=== PATIENT | male | born 1995 | race Caucasian/White ===

== ENCOUNTER 2024-09-22 09:00 | Day surgery (SDC) | payer OTHER ==
[2024-09-21 08:24] VITALS: BP 136/83
[~2024-09-22] VITALS: Ht 182.9 cm; Wt 111.0 kg
[~2024-09-22 09:00] MED LIST: CEFAZOLIN SODIUM 2 GM/20 ML SYR IV SCH; HEParin SOD (PORCINE) 5,000 UNIT/ML SDV SUB-Q SCH; IBLOOD GLUCOSE TEST STRIP 1 EA TEST VI PRN; LACTATED RINGER'S 1,000 ML IV SCH; LIDOCAINE HCL 1% 5 ML SDV INJ ONE; LIDOCAINE HCL 2% 5 ML SDV ONE; MIDAZOLAM HCL 2 MG/2 ML VIAL ONE; fentaNYL citrate 100 MCG/2 ML VIAL ONE; propofoL 200 MG/20 ML VIAL ONE
[2024-09-22 09:18] VITALS: BP 133/80
[2024-09-22] MEDS ORDERED: ondansetron HCL 4 MG/2 ML VIAL ONE (11:25)
[2024-09-22] MEDS ORDERED: DEXAMETHASONE SOD PHOS 4 MG/ML VIAL ONE (11:25)
[2024-09-22] MEDS ORDERED: KETOROLAC TROMETHAMINE 30 MG/ML VIAL ONE (11:25)
[2024-09-22] MEDS ORDERED: ACETAMINOPHEN500 MG PO (11:42)
[2024-09-22] MEDS ORDERED: OXYCODON-ACETA1 EAC2 PO (11:42)
[2024-09-22] MEDS ORDERED: IBUPROFEN600 MG PO (11:42)
[2024-09-22] MEDS ORDERED: IBUPROFEN 600 MG TAB PO PRN (11:45)
[2024-09-22] MEDS ORDERED: OXYCODONE/APAP 7.5/325 TAB PO PRN (11:45)
[2024-09-22] MEDS ORDERED: NALOXONE HCL 0.4 MG SYR IV PRN (11:45)
[2024-09-22] MEDS ORDERED: LACTATED RINGER'S 1,000 ML IV SCH (11:45)
[2024-09-22] MEDS ORDERED: ACETAMINOPHEN 500 MG TAB PO PRN (11:45)
[2024-09-22 12:10] VITALS: BP 134/88
--- NOTE | 2024-09-22 12:16 | NUR ---
09/22/24 1216 Mami Snyder 1126 PT ARRIVED IN PACU NON RESPONSIVE TO NOXIOUS STIMULI. CHIN LIFT HELD BY RN. 1140 PT REACTIVE. CHIN LIFT NOT REQUIRED AT THIS TIME. 1150 SITTING UP IN BED TALKING TO STAFF. NO C/O'S. 1158 TO DS. REPORT GIVEN TO RN. PT DRINKING GRAPE JUICE.
--- NOTE | 2024-09-22 12:19 | NUR ---
1215: PATIENT BACK IN DAY SURGERY ROOM FROM PACU. RATES PAIN 1/10 AT SURGICAL SITE. RIGHT INNER THIGH SURGICAL DRESSING CDI. VS CHECKED. IV SITE WNL. TOLERATING JUICE. GIVEN CRACKERS TO EAT. AT BEDSIDE. CALL LIGHT WITHIN REACH.
--- NOTE | 2024-09-22 12:41 | OR ---
[facility] [address], [place] [address] Signed DATE OF OPERATION: 09/22/2024 SURGEON: Malaika Ng MD PREOPERATIVE DIAGNOSIS: Right medial lower thigh soft tissue mass. 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 PROCEDURE: Excision of soft tissue mass, right medial thigh including skin, subcutaneous tissue and mass itself with a layered closure. ANESTHESIA: General LMA; Melinda Trotter CRNA and local 10 mL of 0.25% Marcaine with epinephrine. INDICATION: This 29-year-old white man is a patient of RIVERA Moore and was referred with a symptomatic right medial distal thigh soft tissue mass. 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 This caused immediate pain of course and development of soft tissue mass in the area he thought. It has become more firm and well circumscribed and is uncomfortable for him from time to time. There has been no drainage. He had no infection and there was no associated fracture of his leg that he was aware of. He has had no regional adenopathy on examination. An ultrasound was performed under the direction of Madeline Thapa on May 27 showing a 2.1 cm ovoid density shadowing with calcification. Clinically, it is likely to represent fat necrosis with a well-circumscribed granulomatous cocoon. I have recommended excision as it is increasingly symptomatic for him. The risk of bleeding, infection, and other unforeseen complications was reviewed with him. He understands and wished to proceed. FINDINGS: Indeed the mass was rock-hard and most likely represents a focal area of fat necrosis with a mass measuring approximately 3 cm. Wide resection was undertaken including subcutaneous fat and overlying skin. Cosmetic result was good. DESCRIPTION OF PROCEDURE: The patient was brought to the operating room, given a general LMA type anesthetic. Electronically Signed By: MALAIKA NG MD 09/22/24 1241 PATIENT NAME: DARLIN SHAH OPERATIVE REPORT DATE OF : [birth year] REPORT #: [id number] PHYSICIAN: MALAIKA NG MD PCP: TYRA GAXIOLA DO REPORT IS CONFIDENTIAL AND NOT TO BE RELEASED WITHOUT AUTHORIZATION [facility] [address], [place] [address] Signed Preoperative antibiotic Ancef was given. Sequential compression device stockings were used. The leg was carefully padded and placed in an externally rotated (frog-leg) position on the right side. The area was prepared with a chlorhexidine solution and draped sterilely. The line of skin tension was examined and the area of excision marked. Excision was going to include the overlying skin, so as to provide a negative margin depending on its underlying etiology. Wide resection was undertaken in an elliptical configuration excising the lesion in question with associated normal-appearing subcutaneous tissue. Hemostasis was assured with electrocautery. A 10 mL of 0.25% Marcaine with epinephrine was injected locally. The wound was closed in layers of interrupted layers of 2-0 Vicryl and a running subcuticular 3-0 Vicryl for the skin. Steri-Strips were applied as was an Acticoat dressing. He tolerated the procedure well. Blood loss was minimal. Malaika Ng MD JM/MODL /[id number] cc: Madeline Thapa PA-C Copies: MADELINE THAPA PA-C ~ Electronically Signed By: MALAIKA NG MD 09/22/24 1241 PATIENT NAME: DARLIN SHAH OPERATIVE REPORT DATE OF : [birth year] REPORT #: [id number] PHYSICIAN: MALAIKA NG MD PCP: TYRA GAXIOLA DO REPORT IS CONFIDENTIAL AND NOT TO BE RELEASED WITHOUT AUTHORIZATION
[2024-09-22 13:05] VITALS: BP 128/77
--- NOTE | 2024-09-22 14:19 | NUR ---
1305: DISCHARGE INSTRUCTIONS GIVEN TO PATIENT AND . IV SALINE LOCKED. RIGHT INNER THIGH DRESSING CLEAN, DRY AND INTACT. PATIENT ASSISTED TO SIT AT BEDSIDE. DENIES DIZZINESS. STAND BY ASSIST TO STANDING POSITION AND WALK AROUND ROOM. GAIT STEADY. PATIENT GETTING DRESSED WITH HELP FROM . 1310: PATIENT WALKED TO BATHROOM WITH STAND BY ASSIST. GAIT STEADY. VOID WITHOUT DIFFICULTY. 1315: IV DC'D WNL. TIP INTACT. DRESSING APPLIED. 1317: PATIENT DISCHARGED TO HOME WITH VIA WHEELCHAIR.
[2024-09-22] MEDS ORDERED: SEVOFLURANE 250 ML BTL INH ONE (17:18)
--- NOTE | 2024-09-24 09:11 | PATH ---
[facility] [address] [place], [place] [address] Signed SPECIMEN(S): A RIGHT MEDIAL DISTAL THIGH SPECIMEN SOURCE: A. RIGHT MEDIAL DISTAL THIGH CLINICAL HISTORY: Mass of soft tissue, right medial thigh FINAL PATHOLOGIC DIAGNOSIS: Skin and soft tissue, right distal medial thigh, excision: - Pilomatricoma BRP MICROSCOPIC EXAMINATION: Histologic sections of all submitted blocks are examined by light microscopy. These findings, together with the gross examination, support the pathologic diagnosis. GROSS DESCRIPTION: The specimen, labeled and designated "Zohra Shah, right medial distal thigh soft tissue mass," is received in formalin and consists of a 4.4 x 1.8 cm portion of skin excised to a depth of 1.6 cm. 3 margin is inked blue and the specimen is serially sectioned revealing a 2.5 x 1.1 0.5 x 1.2 cm firm well-circumscribed calcified white mass that is immediately underlying the skin. The mass is hard to cut through with a scalpel. There are no discrete areas of hemorrhage or necrosis. [employer] sections are submitted cassette A1 following decal [facility] (under the direct supervision of a pathologist) The Gross Description was prepared using a voice recognition system. The report was reviewed for accuracy; however, sound-alike word errors, addition and/or deletions may occur. If there is any question about this report, please contact Client Services. ADDITIONAL NOTES: Immunohistochemical and/or in situ hybridization studies if performed in this case included appropriate positive controls that reacted as expected. This test was developed and its performance characteristics determined by [facility]. It has not been cleared or approved by the U.S. Food and Drug Administration. The FDA has determined that such clearance or approval is not PATIENT NAME: DARLIN SHAH PATHOLOGY DATE OF : [birth year] REPORT #: [id number] PHYSICIAN: MADELAINE BRUMFIELD PCP: TYRA GAXIOLA DO REPORT IS CONFIDENTIAL AND NOT TO BE RELEASED WITHOUT AUTHORIZATION [facility] [address] [place], [place] [address] Signed necessary. This test is used for clinical purposes. It should not be regarded as investigational or for research. [facility] is certified under the Clinical Laboratory Improvement Amendments of 1988 (CLIA) as qualified to perform high complexity clinical laboratory testing. PERFORMING LABORATORY: Technical component was performed by [facility], [address] [place] [address] (CLIA# [id number]). Professional interpretation was performed by [facility], [address] [place] [address] (CLIA#: [id number]). Diagnostician: Arya Goldberg MD Pathologist Electronically Signed 09/24/2024 Copies: ~ PATIENT NAME: DARLIN SHAH PATHOLOGY DATE OF : [birth year] REPORT #: [id number] PHYSICIAN: MADELAINE PATHOLOGY PCP: TYRA GAXIOLA DO REPORT IS CONFIDENTIAL AND NOT TO BE RELEASED WITHOUT AUTHORIZATION
== END 2024-09-22 13:19 | disposition home or self-care (01) ==
LOC: DS 09:00
PROVIDERS: ATTEND Surgery
PROC: 0JBL0ZZ Excision of Right Upper Leg Subcutaneous Tissue and Fascia, Open Approach (ICD-10-PCS; principal; 2024-09-22 10:00)
DX: D23.71 Other benign neoplasm of skin of right lower limb, including hip (principal)
CPT/HCPCS: 01250; J0690; J1100; J1644; J1885; J2003; J2250; J2405; J2704; J3010; J7121